=== PATIENT | male | born 1985 | race Caucasian/White ===

== ENCOUNTER 2017-02-23 18:52 | Emergency (ER) | payer OTHER ==
[2017-02-23] MEDS ORDERED: Sodium Chloride 0.9% 1,000 ML IV ONE (19:13)
--- NOTE | 2017-02-23 19:13 | C.PDOC ---
History Of Present Illness Patient presents to the ER with a complaint of hematuria after he was playing soccer on Tuesday, fell to the ground, and was hit on the left flank. Since then patient has had hematuria; he states he went to see his PMD who gave him pain medication. Patient is SP AVR and MVR; denies dysuria or abdominal pain. Time Seen by Provider: 02/23/17 19:13 Chief Complaint (Nursing): Back Pain History Per: Patient History/Exam Limitations: no limitations Onset/Duration Of Symptoms: Days Current Symptoms Are (Timing): Still Present Quality Of Discomfort: Unable To Describe Severity: Mild Pain Scale Rating Of: 4 Previous Symptoms: None Associated Symptoms: None Exacerbating Factor(s): Nothing Recent travel outside of the [place]: No Past Medical History Reviewed: Historical Data, Nursing Documentation, Vital Signs Vital Signs: Last Vital Signs Temp 98.5 F 02/23/17 21:11 Pulse 79 02/23/17 21:11 Resp 18 02/23/17 21:11 BP 95/65 L 02/23/17 21:11 Pulse Ox 96 02/23/17 21:11 - Medical History PMH: Asthma, HTN Surgical History: No Surg Hx Family History: States: Unknown Family Hx - Social History Hx Alcohol Use: No Hx Substance Use: No Review Of Systems Gastrointestinal: Negative for: Abdominal Pain Genitourinary: Positive for: Hematuria. Negative for: Dysuria Physical Exam - Physical Exam Appears: Non-toxic Skin: Warm, Dry Oral Mucosa: Moist Chest: No Tenderness, Other (Sternotomy scar) Cardiovascular: Rhythm Regular Respiratory: No Rales, No Rhonchi, No Wheezing Gastrointestinal/Abdominal: Bowel Sounds (Good), Soft, No Tenderness Back: Other (Left flank tenderness) Neurological/Psych: Oriented x3 ED Course And Treatment - Laboratory Results Result Diagrams: 02/23/17 19:36 02/23/17 19:36 O2 Sat by Pulse Oximetry: 98 (Room air) Pulse Ox Interpretation: Normal - Radiology CXR: Interpreted by Me, Viewed By Me CXR Interpretation: Yes: Other (sternotomy wires, avr and mvr). No: Infiltrates , Fracture, Pnemothorax Progress Note: Blood work and urinalysis ordered. Pepcid and IV fluids administered. spoke with dr shook - is aware of the ct findings. OK to dischanrge the pt home and will see in office Reevaluation Time: 22:04 Reassessment Condition: Improved Medical Decision Making Medical Decision Making: Upon provider reevaluation patient is feeling better, is medically stable, and requires no further treatment in the ED at this time. Patient will be discharged home . Counseling was provided and all questions were answered regarding diagnosis and need for follow up with dr shook. There is agreement to discharge plan. Return if symptoms persist or worsen. Disposition Counseled Patient/Family Regarding: Studies Performed, Diagnosis, Need For Followup - Disposition Referrals: Robb Shook MD [Staff Provider] - Disposition: HOME/ ROUTINE Disposition Time: 19:13 Condition: FAIR Additional Instructions: Please return if symptoms recur Instructions: Contusion in Adults (DC) Forms: [employer] (Vietnamese) - Clinical Impression Clinical Impression: Contusion of flank and back, Renal infarct - Scribe Statement The provider has reviewed the documentation as recorded by the Scribe Walter Barrientos All medical record entries made by the Scribe were at my direction and personally dictated by me. I have reviewed the chart and agree that the record accurately reflects my personal performance of the history, physical exam, medical decision making, and the department course for this patient. I have also personally directed, reviewed, and agree with the discharge instructions and disposition.
[2017-02-23 19:32] LABS: URINE BILIRUBIN NEGATIVE (NEGATIVE); URINE BLOOD NEGATIVE (NEGATIVE); URINE COLOR Yellow (YELLOW); URINE GLUCOSE (UA) NORMAL (Normal); URINE KETONE NEGATIVE (NEGATIVE); URINE LEUKOCYTE ESTERASE NEG Leu/uL (Negative); URINE PROTEIN NEGATIVE (NEGATIVE); WBC URINE 1 /hpf (0-5)
[2017-02-23] MEDS ORDERED: Sodium Chloride 0.9% 1,000 ML ONE (19:37)
[2017-02-23 19:42] LABS: BASO % 0.2 % (0.0-2.0); EOS # 0.1 K/uL (0.0-0.7); EOS % 1.1 % (0.0-4.0); HEMATOCRIT 37.5 % (35.0-51.0); LYMPH # 1.8 K/uL (1.0-4.3); LYMPH % 22.7 % (20.0-40.0); MEAN CORPUSCULAR HEMOGLOBIN 23.4 pg (27.0-31.0); MEAN CORPUSCULAR HGB CONC 31.7 g/dL (33.0-37.0); MONO # 0.7 K/uL (0.0-0.8); MONO % 8.7 % (0.0-10.0); RED CELL DISTRIBUTION WIDTH 17.8 % (11.5-14.5); WHITE BLOOD COUNT 8.1 K/uL (4.8-10.8)
[2017-02-23 19:43] LABS: MEAN CELL VOLUME 73.7 fL (80.0-94.0)
[2017-02-23 19:46] LABS: INR 3.3
[2017-02-23 19:50] LABS: ALKALINE PHOSPHATASE 41 U/L (38-126); ALT/SGPT 36 U/L (21-72); AST/SGOT 41 U/L (17-59); BILIRUBIN,TOTAL 1.4 mg/dL (0.2-1.3); BLOOD UREA NITROGEN 11 mg/dL (9-20); CALCIUM 9.1 mg/dl (8.6-10.4); CARBON DIOXIDE 28 mmol/L (22-30); CHLORIDE 99 mmol/L (98-107); GFR AFRICAN-AMERICAN > 60; GLUCOSE,RANDOM 95 mg/dL (75-110); POTASSIUM 3.9 mmol/L (3.6-5.2); SODIUM 139 mmol/L (132-148); TOTAL PROTEIN 7.5 g/dL (6.3-8.3)
[2017-02-23] MEDS ORDERED: Iohexol 300 100 ML IJ ONE (20:19)
[2017-02-23 21:12] VITALS: PULSE 79; RESP 18
--- NOTE | 2017-02-23 21:49 | CT ---
EXAM: CT Abdomen and Pelvis With Intravenous Contrast EXAM DATE/TIME: 02/23/2017 7:57 PM CLINICAL HISTORY: 31 years old, male; Pain and injury or trauma; Injury Trauma in sport; Initial encounter; Blunt trauma; Other: Left flank pain; Abdominal pain; Left lower quadrant (llq); Additional info: Inr 3.3, trauma left flank, HX of hematuria, pain TECHNIQUE: Axial computed tomography images of the abdomen and pelvis with intravenous contrast during the arterial phase of enhancement. All CT scans at this facility use one or more dose reduction techniques, viz.: automated exposure control; ma/kV adjustment per patient size (including targeted exams where dose is matched to indication; i.e. head); or iterative reconstruction technique. Coronal and sagittal reformatted images were created and reviewed. CONTRAST: 100 mL of OMNI 300 administered intravenously. COMPARISON: There are no prior studies for comparison. FINDINGS: Artifacts: Motion artifact degrades image quality. Lower thorax: The heart is mildly enlarged. There are prosthetic valves. There are epicardial pacer wires. There is increased interstitial markings at the lung bases. There are groundglass opacities. There is a small hiatal hernia. VASCULATURE: Aorta: see above Celiac trunk and mesenteric arteries: see above No occlusion or significant stenosis. Renal arteries: see above Iliac arteries: see above ABDOMEN: Liver: unremarkable Gallbladder and bile ducts: unremarkable Pancreas: unremarkable Spleen: unremarkable Adrenals: unremarkable Kidneys and ureters: The right kidney is unremarkable. There is a wedge-shaped perfusion defect in the upper pole of the left kidney.there is no adjacent inflammation or edema. There is no pelvocaliectasis or ureterectasis. Stomach and bowel: Stomach is only partially distended. Rotation is normal. Small bowel is mildly with enteric contents and air. There is no obstruction. There is fecalization of the distal and terminal ileum. Appendix is unremarkable. There is a moderately large amount of stool in the right colon. Appendix: unremarkable PELVIS: Bladder: Urinary bladder is partially distended. Reproductive: Seminal vesicles and prostate are unremarkable. ABDOMEN and PELVIS: Intraperitoneal space: There is no free air.There is no free fluid. Retroperitoneal space: Psoas muscles are symmetric. There is no retroperitoneal hematoma. Bones/joints: There are postsurgical changes of median sternotomy. There are no acute osseous abnormalities Soft tissues: There is no abdominal wall hematoma. Lymph nodes: unremarkable Other findings: Vascular structures are unremarkable. IMPRESSION: No acute solid visceral injury; wedge-shaped perfusion defect in the upper pole of the left kidney, differential diagnosis includes infarct or infection, no renal or ureteral stones or hydronephrosis; mild ileus, no obstruction, no CT findings of bowel injury; prior median sternotomy and valve replacement; no retroperitoneal or abdominal wall hematoma, no fracture seen Additional findings as described above.
[2017-02-23 22:22] VITALS: BP 99/66; TEMP 98; O2SAT 100
--- NOTE | 2017-02-24 08:46 | RAD ---
PROCEDURE: CHEST RADIOGRAPH, 1 VIEW HISTORY: left rib pain COMPARISON: None available. FINDINGS: LUNGS: There is severe pulmonary venous congestion. No focal consolidation. PLEURA: No pneumothorax or pleural fluid seen. CARDIOVASCULAR: There is mild cardiomegaly with prominent central vasculature. Status post median sternotomy and aortic and mitral valves replacement. OSSEOUS STRUCTURES: No significant abnormalities. VISUALIZED UPPER ABDOMEN: Normal. OTHER FINDINGS: None. IMPRESSION: Mild cardiomegaly and severe pulmonary venous congestion.
== END 2017-02-23 22:22 | disposition home or self-care (01) ==
LOC: C.ER 18:52
DX: S30.1XXA Contusion of abdominal wall, initial encounter (principal); S30.0XXA Contusion of lower back and pelvis, initial encounter; W18.30XA Fall on same level, unspecified, initial encounter; Y93.66 Activity, soccer; N28.0 Ischemia and infarction of kidney
CPT/HCPCS: 71010; 74175; 80053; 81001; 83690; 85025; 85610; 85730; 96361; 96374; 99285; J7040; Q9967

== ENCOUNTER 2017-04-04 11:40 | Day surgery (SDC) | payer OTHER ==
[2017-03-29 09:49] VITALS: BMI 21.7
[2017-04-04 12:41] LABS: HEMATOCRIT 43.4 % (35.0-51.0); MEAN CORPUSCULAR HEMOGLOBIN 23.8 pg (27.0-31.0); MEAN CORPUSCULAR HGB CONC 31.7 g/dL (33.0-37.0); MEAN PLATELET VOLUME 10.9 fL (7.2-11.7); RED CELL DISTRIBUTION WIDTH 18.4 % (11.5-14.5); WHITE BLOOD COUNT 4.7 K/uL (4.8-10.8)
[2017-04-04 12:48] LABS: CHLORIDE 104 mmol/L (98-107); SODIUM 135 mmol/L (132-148)
[2017-04-04 12:49] LABS: INR 1.9; POTASSIUM 4.1 mmol/L (3.6-5.2)
[2017-04-04] MEDS ORDERED: Lidocaine 4% (Laryng-O-Jet) Kit MM ONE (12:50)
[2017-04-04 12:51] LABS: CARBON DIOXIDE 25 mmol/L (22-30); GFR AFRICAN-AMERICAN > 60
[2017-04-04 12:52] LABS: BLOOD UREA NITROGEN 14 mg/dL (9-20); CALCIUM 8.6 mg/dl (8.6-10.4); GLUCOSE,RANDOM 83 mg/dL (75-110)
[2017-04-04] MEDS ORDERED: Phenylephrine 10 mg/ml Inj ONE (13:26)
[2017-04-04] MEDS ORDERED: Midazolam 2 MG/2 ML VIAL ONE (13:26)
[2017-04-04] MEDS ORDERED: Etomidate 20 mg/10ml Inj IV ONE (13:54)
--- NOTE | 2017-04-10 08:48 | CARD ---
APPROVED REPORT EXAM: Transesophageal echocardiogram with color flow Doppler. INDICATION Aortic Valve Disease Mitral Valve Disease MVR/ MS/ AVR Mitral Valve MV E Peak Gr.14mmHgMV E Mean Gr.7mmHgMV [id number] E/A ratio0.0MVA (PHT)1.05cm2 TDI E/Lateral E'0.0E/Medial E'0.0 Reason For Test : Evaluate prosthetic valve PROCEDURE After obtaining informed consent, patient underwent transesophageal echo in the [facility]. Type of Sedation : Conscious Sedation Sedation was provided by anesthesiologist. Sedation was achieved with intravenously. The CLIFTON was performed complications. Throughout the procedure, the blood pressure, pulse oximetry, cardiac rhythm, and rate were monitored. The patient tolerated the procedure without adverse effects. Recovery from conscious sedation was uneventful and vital signs were stable. LEFT VENTRICLE Left ventricle systolic function is mildly impaired. The Ejection Fraction is 40-45%. No left ventricle thrombus noted on this study. There is no ventricular septal defect visualized. There is no left ventricular aneurysm. RIGHT VENTRICLE The right ventricle is moderately dilated. The right ventricular systolic function is normal. ATRIA The left atrium is moderately dilated. The right atrium is moderately dilated. The interatrial septum is intact with no evidence for an atrial septal defect. AORTIC VALVE Bileaflet Aortic Mechanical valve (? [employer]). Normal motion. No vegetation or Thrombus noted No aortic regurgitation is present. There is no aortic valvular stenosis. There is no aortic valvular vegetation. MITRAL VALVE Mechanical Mitral valve. Single Tilting disc (? [employer] Brock). Technically difficult images due to artifacts. No clear vegetation or thrombus noted. Peak Gradient 15.52mmHg and Mean gradient 9.8mmHg across the valve suggestive of Mechanical Mitral valve stenosis/obstruction TRICUSPID VALVE The tricuspid valve is normal in structure. There is mild to moderate tricuspid regurgitation. There is no tricuspid valve prolapse or vegetation. There is no tricuspid valve stenosis. PULMONIC VALVE The pulmonary valve is normal in structure. GREAT VESSELS The aortic root is normal in size. <Conclusion> Left ventricle systolic function is mildly impaired. The Ejection Fraction is 40-45%. The right ventricle is moderately dilated. The left atrium is moderately dilated. The right atrium is moderately dilated. The interatrial septum is intact with no evidence for an atrial septal defect. Bileaflet Aortic Mechanical valve (? [employer]). Normal motion. No vegetation or Thrombus noted Mechanical Mitral valve. Single Tilting disc (? [employer]). Technically difficult images due to artifacts. No clear vegetation or thrombus noted. Peak Gradient 15.52mmHg and Mean gradient 9.8mmHg across the Mechanical Mitral valve suggestive of Mechanical Mitral valve stenosis/obstruction
== END 2017-04-04 16:39 | disposition home or self-care (01) ==
LOC: C.CATHLAB 11:40
PROVIDERS: ATTEND Internal Medicine Cardiovascular Disease
DX: Z95.2 Presence of prosthetic heart valve (principal); R06.02 Shortness of breath; I35.0 Nonrheumatic aortic (valve) stenosis
CPT/HCPCS: 36415; 80048; 85027; 85610; 85730; 93312; J2250; J2370; J3010

== ENCOUNTER 2017-04-20 07:56 | Emergency (ER) | payer BC, OTHER ==
[2017-04-20 08:07] VITALS: BMI 17.4
[2017-04-20 08:13] VITALS: TEMP 97.9
[2017-04-20] MEDS ORDERED: Sodium Chloride 0.9% 250 ML IV ONE ×2 (08:14→11:53)
--- NOTE | 2017-04-20 08:19 | C.PDOC ---
History Of Present Illness Patient is a 31 y/o M with hx of aortic and mitral valve replacement, pulmonary htn, recent echo showing mitral valve stenosis, presenting with generalized fatigue since this morning. He also reports vomiting and diarrhea today. PMD: Dr. Sosa Fitness Director: Dr. Cerna Time Seen by Provider: 04/20/17 08:05 Chief Complaint (Nursing): Weakness/Neurological Deficit History Per: Patient History/Exam Limitations: no limitations Onset/Duration Of Symptoms: Hrs (This morning) Current Symptoms Are (Timing): Still Present Severity: Mild Recent travel outside of the [place]: No Additional History Per: Patient Past Medical History Reviewed: Historical Data, Nursing Documentation, Vital Signs Vital Signs: Last Vital Signs Temp 97.9 F 04/20/17 08:07 Pulse 62 04/20/17 12:27 Resp 16 04/20/17 12:27 BP 91/52 L 04/20/17 12:27 Pulse Ox 100 04/20/17 12:27 - Medical History PMH: Asthma, HTN, Mitral Valve Prolapse (aortic valve replacement 2013) Denies: Chronic Kidney Disease Family History: States: Unknown Family Hx - Social History Hx Alcohol Use: No Hx Substance Use: No - Immunization History Hx Tetanus Toxoid Vaccination: No Hx Influenza Vaccination: No Hx Pneumococcal Vaccination: No Review Of Systems Except As Marked, All Systems Reviewed And Found Negative. Constitutional: Positive for: Other (Lethargy). Negative for: Fever, Chills Eyes: Negative for: Vision Change Cardiovascular: Negative for: Chest Pain, Palpitations, Paroxysmal Noc. Dyspnea , Light Headedness, Other Respiratory: Negative for: Cough, Shortness of Breath, SOB with Excertion, Wheezing Gastrointestinal: Positive for: Vomiting, Diarrhea. Negative for: Abdominal Pain, Constipation Genitourinary: Negative for: Dysuria, Hematuria Musculoskeletal: Negative for: Leg Pain, Foot Pain Skin: Negative for: Rash Neurological: Negative for: Weakness, Numbness, Incoordination, Altered Mental Status, Headache, Dizziness Psych: Negative for: Anxiety Physical Exam - Physical Exam Appears: Non-toxic, No Acute Distress Skin: Warm, Dry, Pale Head: Atraumatic, Normacephalic Eye(s): bilateral: Normal Inspection, PERRL, EOMI Chest: Symmetrical Cardiovascular: Rhythm Regular, Murmur Respiratory: Normal Breath Sounds, No Rales, No Rhonchi, No Wheezing Gastrointestinal/Abdominal: Soft, No Tenderness Back: Normal Inspection, No CVA Tenderness Extremity: Normal ROM (All extremities) Neurological/Psych: Oriented x3 Gait: Steady ED Course And Treatment - Laboratory Results Result Diagrams: 04/20/17 08:27 04/20/17 08:27 O2 Sat by Pulse Oximetry: 92 Pulse Ox Interpretation: Abnormal Medical Decision Making Medical Decision Making: Patient is presenting with fatigue, vomiting and diarrhea. Abdomen soft NT/ND. Plans: * Blood labs * EKG * CXR * IV fluids * UA CXR: Grossly negative. EKG shows NSR at 95bpm with biatrial enlargement, and early repolarization. No ST elevation Labs grossly normal except for hypokalemia which was replaced. Cxray shows Mild pulmonary venous congestion. Median sternotomy wires. Cardiac valve prostheses. Mild cardiomegaly. CT shows "Questionable segmental colitis affecting the mid ascending through mid to distal transverse colon. This segment of bowel is collapsed limiting its interpretation. No pericolic fluid or reaction is appreciable however there is a limited amount of intraperitoneal fat this patient. Clinically correlate further. Differs diagnosis would be infectious or inflammatory causes, ischemia or neoplasm. Pole left renal infarct (chronic). The remainder the examination is unremarkable with exception of incidental per mitral prosthetic valve at the inferior margins of the aortic valve identified as well. Cardiomegaly. 6 mm noncalcified nodule right lower lobe. Follow-up chest CT is advised electively." Spoke to Dr. Sosa. He reports that symptoms are likely viral. Patient feels better after IVF and potassium replacement. He has always denied chest pain or shortness of breath. He is tolerating po. Dr. Sosa reports that he will see patient tomorrow if his office and does not want any antibiotics. Disposition - Disposition Disposition: HOME/ ROUTINE Disposition Time: 12:48 Condition: GOOD Additional Instructions: Follow-up with Dr. Sosa tomorrow. Return to ED if condition worsens. Instructions: Gastroenteritis (ED) Forms: [employer] (Cook Islander) - Clinical Impression Clinical Impression: Vomiting, Diarrhea, Hypokalemia - Scribe Statement The provider has reviewed the documentation as recorded by the Scribe Kimberly hogue All medical record entries made by the Scribe were at my direction and personally dictated by me. I have reviewed the chart and agree that the record accurately reflects my personal performance of the history, physical exam, medical decision making, and the department course for this patient. I have also personally directed, reviewed, and agree with the discharge instructions and disposition.
[2017-04-20 08:35] LABS: BASO % 0.2 % (0.0-2.0); EOS # 0.2 K/uL (0.0-0.7); EOS % 3.2 % (0.0-4.0); HEMATOCRIT 44.1 % (35.0-51.0); LYMPH # 2.5 K/uL (1.0-4.3); LYMPH % 40.8 % (20.0-40.0); MEAN CELL VOLUME 75.3 fL (80.0-94.0); MEAN CORPUSCULAR HEMOGLOBIN 23.9 pg (27.0-31.0); MEAN CORPUSCULAR HGB CONC 31.7 g/dL (33.0-37.0); MEAN PLATELET VOLUME 10.6 fL (7.2-11.7); MONO # 0.6 K/uL (0.0-0.8); RED CELL DISTRIBUTION WIDTH 18.4 % (11.5-14.5); WHITE BLOOD COUNT 6.1 K/uL (4.8-10.8)
[2017-04-20 08:37] LABS: VENOUS BLOOD GAS BASE EXCESS 0.3 mmol/L (0.0-2.0); VENOUS BLOOD GAS PCO2 48 mmHg (40-60); VENOUS BLOOD PH 7.35 (7.32-7.43)
[2017-04-20 09:09] LABS: CHLORIDE 102 mmol/L (98-107); POTASSIUM 3.2 mmol/L (3.6-5.2); SODIUM 136 mmol/L (132-148)
[2017-04-20 09:11] LABS: ALB/GLOB RATIO 1.2 (1.0-2.1); ALKALINE PHOSPHATASE 49 U/L (38-126); ALT/SGPT 36 U/L (21-72); AST/SGOT 44 U/L (17-59); BILIRUBIN,TOTAL 1.3 mg/dL (0.2-1.3); BLOOD UREA NITROGEN 14 mg/dL (9-20); CARBON DIOXIDE 26 mmol/L (22-30); GFR AFRICAN-AMERICAN > 60; TOTAL PROTEIN 7.3 g/dL (6.3-8.3)
[2017-04-20 09:12] LABS: CALCIUM 8.4 mg/dl (8.6-10.4); GLUCOSE,RANDOM 122 mg/dL (75-110); MAGNESIUM 1.8 mg/dL (1.6-2.3)
[2017-04-20 09:50] VITALS: RESP 16
[2017-04-20] MEDS ORDERED: Iodixanol 320 MG/ML 100 ML BOTTLE IV ONE (10:14)
--- NOTE | 2017-04-20 11:27 | CT ---
PROCEDURE: CT Abdomen and Pelvis with contrast HISTORY: vomiting, diarrhea COMPARISON: CT angiogram of the abdomen and pelvis 02/23/2017. TECHNIQUE: Contrast dose: Visipaque 320, 100 cc. Radiation dose: Total exam DLP = 221.02 mGy-cm. This CT exam was performed using one or more of the following dose reduction techniques: Automated exposure control, adjustment of the mA and/or kV according to patient size, and/or use of iterative reconstruction technique. FINDINGS: LOWER THORAX: UnremarkableA 6 mm nodule is noncalcified at the right lower lobe appearing subpleural. Bilateral basilar dependent atelectasis is minimal. Cardiomegaly is noted with synthetic mitral valve in situ. An aortic valve replacement is only partially captured in this exam. LIVER: Borderline diffuse fatty infiltration. No discrete mass identified throughout the liver. GALLBLADDER AND BILE DUCTS: Unremarkable. PANCREAS: Unremarkable. No gross lesion or ductal dilatation. SPLEEN: Unremarkable. ADRENALS: Unremarkable. No mass. KIDNEYS AND URETERS: Trace cortical defect at the upper pole left kidney likely reflects infarct or posttraumatic change. Right kidney appears unremarkable. VASCULATURE: Unremarkable. No aortic aneurysm. BOWEL: No bowel obstruction is appreciated and the lack of oral contrast limits evaluation of the stomach small and large bowel segments. There is questionable thickening of the transverse and mid to distal ascending colon in a pattern that may reflect colitis. No pericolic reaction is appreciated or ascites throughout this segment of large bowel. This segment is collapsed as well, further limiting the evaluation. Clinically correlate further. Small bowel appears unremarkable as imaged. APPENDIX: The appendix is not extending beyond 5-6 mm caliber and is partially gas-filled. Trace fluid is seen inferior to the appendix. Appendicitis is not favored but the local fluid may is difficult to completely exclude this. Clinically correlate further. PERITONEUM: Unremarkable. No free fluid. No free air. LYMPH NODES: Unremarkable. No enlarged lymph nodes. BLADDER: Unremarkable. REPRODUCTIVE: Unremarkable. BONES: No acute fracture. OTHER FINDINGS: None. IMPRESSION: Questionable segmental colitis affecting the mid ascending through mid to distal transverse colon. This segment of bowel is collapsed limiting its interpretation. No pericolic fluid or reaction is appreciable however there is a limited amount of intraperitoneal fat this patient. Clinically correlate further. Differs diagnosis would be infectious or inflammatory causes, ischemia or neoplasm. Pole left renal infarct (chronic). The remainder the examination is unremarkable with exception of incidental per mitral prosthetic valve at the inferior margins of the aortic valve identified as well. Cardiomegaly. 6 mm noncalcified nodule right lower lobe. Follow-up chest CT is advised electively.
[2017-04-20] MEDS ORDERED: Potassium Chloride 20 mEq ER Tab PO STA (11:30)
[2017-04-20] MEDS ORDERED: Ciprofloxacin 200mg/100ml D5W 100 ML IVPB STA (11:30)
[2017-04-20] MEDS ORDERED: metroNIDAZOLE IV 500 mg/100 ml 500 MG/100 ML BAG IVPB STA (11:30)
--- NOTE | 2017-04-20 11:37 | RAD ---
HISTORY: fatigue COMPARISON: Chest x-ray performed 02/23/17 TECHNIQUE: Chest, one view. FINDINGS: LUNGS: Mild pulmonary venous congestion. Please note that chest x-ray has limited sensitivity for the detection of pulmonary masses. PLEURA: No significant pleural effusion identified. No definite pneumothorax . CARDIOVASCULAR: Median sternotomy wires. Cardiac valve prostheses. Mild cardiomegaly. OSSEOUS STRUCTURES: No acute osseous abnormality identified. VISUALIZED UPPER ABDOMEN: Unremarkable. OTHER FINDINGS: None. IMPRESSION: Mild pulmonary venous congestion. Median sternotomy wires. Cardiac valve prostheses. Mild cardiomegaly.
[2017-04-20] MEDS ORDERED: Potassium Chloride 10 mEq ER Tab PO ONE (11:41)
[2017-04-20] MEDS ORDERED: metroNIDAZOLE IV 500 mg/100 ml 0 MG/0 ML BAG ONE (11:41)
[2017-04-20 12:27] VITALS: BP 91/52; PULSE 62
[2017-04-20 12:48] VITALS: O2SAT 92
--- NOTE | 2017-04-22 16:15 | CARD ---
APPROVED REPORT EKG Measurement Heart [id number] <Conclusion> Normal sinus rhythm Biatrial enlargement Early repolarization Abnormal ECG
== END 2017-04-20 13:30 | disposition home or self-care (01) ==
LOC: C.ER 07:56
DX: R11.10 Vomiting, unspecified (principal); R19.7 Diarrhea, unspecified; E87.6 Hypokalemia
CPT/HCPCS: 71010; 74177; 80053; 82550; 82553; 82803; 83690; 83735; 83880; 84100; 84484; 85025; 85610; 85730; 87040; 96361; 96374; 99285; J2405; Q9967